=== PATIENT | female | born 1975 | race Caucasian/White ===

== ENCOUNTER 2017-04-16 17:07 | Emergency (ER) | payer OTHER ==
[~2017-04-16] VITALS: Ht 160 cm; Wt 90.3 kg
[~2017-04-16 17:07] MED LIST: ADVIL,NUPRIN,M200 MG PO; MEFENAMIC ACID250 MG PO; MULTIPLE VITAM1 EAC1 PO; SYNTHROID75 MCG PO
[2017-04-16 17:38] LABS: HEMATOCRIT 35.7 % (36.0-46.0); HEMOGLOBIN 11.6 G/DL (11.9-15.5); MCH 25.7 PG (29.0-34.0); MCHC 32.5 G/DL (30.0-36.0); PLATELET COUNT 280 K/uL (156-360); RBC DIS.WIDTH-CV 15.3 % (11.8-14.6); RBC DIS.WIDTH-SD 43.8 % (39-53); RED BLOOD COUNT 4.52 M/uL (3.80-5.20); WHITE BLOOD COUNT 7.7 K/uL (4.1-10.2)
[2017-04-16 17:48] LABS: CHLORIDE 104 mEq/L (99-109); POTASSIUM 3.9 mEq/L (3.7-5.4); SODIUM 138 mEq/L (136-147)
[2017-04-16 17:50] LABS: GLUCOSE 97 mg/dL (70-99)
[2017-04-16 17:54] LABS: CREATININE 0.9 mg/dL (0.6-1.3); GFR ESTIMATE (CALCULATED) > 59 mL/min/
[2017-04-16 17:55] LABS: UREA NITROGEN (BUN) 7 mg/dL (9-23)
[2017-04-16 18:00] LABS: TROP-I INTERPRETATION NEGATIVE; TROPONIN-I < 0.01 ng/mL (0.0-0.30)
[2017-04-16 20:26] VITALS: BP 143/84
[2017-04-16 20:35] LABS: THYROTROPIN (TSH) 1.4 MIU/L (0.4-5.5)
== END 2017-04-16 20:27 | disposition home or self-care (01) ==
LOC: EME 17:07
DX: R00.2 Palpitations (principal); E03.9 Hypothyroidism, unspecified; D64.9 Anemia, unspecified; Z87.891 Personal history of nicotine dependence
CPT/HCPCS: 71020; 80048; 84443; 84484; 85027; 93005; 99281; 99284